=== PATIENT | male | born 1930 | race Caucasian/White ===

== ENCOUNTER 2018-12-20 08:28 | Inpatient (IN) | payer MEDICARE ==
[~2018-12-20] VITALS: Ht 162.6 cm; Wt 53.5 kg
[~2018-12-20 08:28] MED LIST: FAMO20TA8 PO; LEVO25TA7 PO
[2018-12-20] MEDS ORDERED: IV NS 0.9% 1,000 ML BAG IV ONE (09:00)
[2018-12-20 09:07] LABS: BASOPHILS # (AUTO) 0.1 /CMM (0.0-0.2); BASOPHILS % (AUTO) 0.8 % (0.0-2.0); EOSINOPHILS % (AUTO) 2.7 % (0.0-6.0); HEMATOCRIT 41 % (39-51); HEMOGLOBIN 13.8 g/dL (13.5-17.5); LYMPHOCYTES # (AUTO) 2.1 /CMM (0.8-4.8); LYMPHOCYTES % (AUTO) 32.2 % (20.0-44.0); MEAN CORPUSCULAR HGB CONC 34 g/dl (31.0-36.0); MEAN CORPUSCULAR VOLUME 89 fL (80-96); MONOCYTES # (AUTO) 0.4 /CMM (0.1-1.30); MONOCYTES % (AUTO) 6.5 % (2.0-12.0); NEUTROPHILS # (AUTO) 3.8 /CMM (1.8-8.9); NEUTROPHILS % (AUTO) 57.8 % (43.0-81.0); PLATELET COUNT (AUTO) 118 /CMM (150-450); RED BLOOD CELL COUNT(AUTO) 4.59 MIL/uL (4.5-6.0); WHITE BLOOD COUNT (AUTO) 6.5 K/uL (4.3-11.0)
[2018-12-20 09:19] LABS: CALCIUM, SERUM 8.4 mg/dL (8.5-10.1); CARBON DIOXIDE 31 mmol/L (21-32); CHLORIDE 104 mmol/L (98-107); CREATININE 1.1 mg/dL (0.6-1.3); GLUCOSE 134 mg/dL (74-106); POTASSIUM 4.8 mmol/L (3.5-5.1); SODIUM SERUM 139 mmol/L (136-145); UREA NITROGEN, BLOOD 17 mg/dL (7-18)
[2018-12-20 09:20] LABS: APPEARANCE,URINE Clear (CLEAR); BILIRUBIN,URINE Negative (NEGATIVE); BLOOD, URINE Small Ery/uL (NEGATIVE); COLOR,URINE Yellow (YELLOW); KETONES,URINE Negative (NEGATIVE); LEUKOCYTE ESTERASE ,URINE Negative (NEGATIVE); NITRITE, URINE Negative (NEGATIVE); PH,URINE 8.5 (5.0-8.0); PROTEIN,URINE Negative (NEGATIVE); UGLUCOSE Negative (NEGATIVE)
[2018-12-20 09:25] LABS: BACTERIA,URINE Rare /HPF (None Seen); RBC,URINE 0-2 /HPF (0-2); SQUAMOUS EPITHELIAL CELL,UR Rare /HPF (None Seen); WBC,URINE 0-2 /HPF (0-3)
[2018-12-20 09:25] LABS: ALANINE AMINOTRANSFERASE 44 U/L (12-78); ALBUMIN 2.7 g/dL (3.4-5.0); ALKALINE PHOSPHATASE 103 U/L (46-116); ASPARTATE AMINOTRANSFERASE 21 U/L (15-37); BILIRUBIN,DIRECT 0.3 mg/dL (0.0-0.2); TOTAL PROTEIN, SERUM 5.7 g/dL (6.4-8.2)
[2018-12-20] MEDS ORDERED: TAMS-12 PO (09:36)
[2018-12-20 13:00] VITALS: BP 126/73
[2018-12-20] MEDS ORDERED: ZOLPIDEM TARTRATE 5 MG TABLET PO PRN (14:00)
[2018-12-20] MEDS ORDERED: MAG HYDROX/AL HYDROX/SIMETH 30 ML UDC PO PRN (14:00)
[2018-12-20] MEDS ORDERED: MAGNESIUM HYDROXIDE 30 ML UDC PO PRN (14:00)
[2018-12-20] MEDS ORDERED: HYDROCODONE/APAP 5/325MG 1 EACH TABLET PO PRN (14:00)
[2018-12-20] MEDS ORDERED: ACETAMINOPHEN 325 MG TABLET PO PRN (14:00)
[2018-12-20] MEDS ORDERED: Z GUARD REMEDY 2 OZ OINT TP PRN (14:00)
[2018-12-20] MEDS ORDERED: ONDANSETRON HCL/PF 4 MG/2 ML VIAL IVP PRN (14:00)
[2018-12-20] MEDS: IV NS 0.9% 1,000 ML IV PRN (15:03)
[2018-12-20 20:00] VITALS: BP 115/70
[2018-12-20] MEDS: TAMSULOSIN 0.4 MG CAP.SR.24H PO SCH (22:00)
[2018-12-21] VITALS: BP 137/66
[2018-12-21 00:24] VITALS: BP 137/66
[2018-12-21 04:00] VITALS: BP 146/68
[2018-12-21 07:12] LABS: BASOPHILS % (AUTO) 0.7 % (0.0-2.0); EOSINOPHILS % (AUTO) 3.4 % (0.0-6.0); HEMATOCRIT 42 % (39-51); HEMOGLOBIN 13.7 g/dL (13.5-17.5); LYMPHOCYTES # (AUTO) 1.2 /CMM (0.8-4.8); LYMPHOCYTES % (AUTO) 26.7 % (20.0-44.0); MEAN CORPUSCULAR HGB CONC 33 g/dl (31.0-36.0); MEAN CORPUSCULAR VOLUME 89 fL (80-96); MONOCYTES # (AUTO) 0.3 /CMM (0.1-1.30); MONOCYTES % (AUTO) 6.9 % (2.0-12.0); NEUTROPHILS # (AUTO) 2.8 /CMM (1.8-8.9); NEUTROPHILS % (AUTO) 62.3 % (43.0-81.0); PLATELET COUNT (AUTO) 105 /CMM (150-450); RED BLOOD CELL COUNT(AUTO) 4.72 MIL/uL (4.5-6.0); WHITE BLOOD COUNT (AUTO) 4.5 K/uL (4.3-11.0)
[2018-12-21] MEDS: PANTOPRAZOLE 40 MG TABLET.DR PO SCH (07:30)
[2018-12-21] MEDS: LEVOTHYROXINE SODIUM 25 MCG TABLET PO SCH (07:30)
[2018-12-21 08:00] VITALS: BP 151/83
[2018-12-21] MEDS: IV NS 0.9% 1,000 ML IV PRN (09:33)
[2018-12-21 09:42] LABS: PREALBUMIN 19.9 MG/DL (18.0-35.7)
[2018-12-21 09:43] LABS: CARBON DIOXIDE 21 mmol/L (21-32); CHLORIDE 104 mmol/L (98-107); POTASSIUM 4.9 mmol/L (3.5-5.1); SODIUM SERUM 139 mmol/L (136-145)
[2018-12-21 09:44] LABS: CALCIUM, SERUM 8.3 mg/dL (8.5-10.1); CREATININE 0.8 mg/dL (0.6-1.3); GLUCOSE 94 mg/dL (74-106); UREA NITROGEN, BLOOD 10 mg/dL (7-18)
[2018-12-21 09:45] LABS: ALANINE AMINOTRANSFERASE 41 U/L (12-78); ALKALINE PHOSPHATASE 99 U/L (46-116); ASPARTATE AMINOTRANSFERASE 31 U/L (15-37); BILIRUBIN,TOTAL 1.2 mg/dL (0.2-1.0); PHOSPHORUS 2.7 mg/dL (2.5-4.9)
[2018-12-21 09:46] LABS: ALBUMIN 2.6 g/dL (3.4-5.0); MAGNESIUM 1.7 mg/dL (1.8-2.4); TOTAL PROTEIN, SERUM 5.6 g/dL (6.4-8.2)
[2018-12-21 10:52] LABS: CHOLESTEROL 180 mg/dL (<200); HDL CHOLESTEROL 81 mg/dL (40-60); LDL 80 mg/dL (0-99); TRIGLYCERIDES 101 mg/dL (30-150)
[2018-12-21 16:00] VITALS: BP 104/84
[2018-12-21 20:00] VITALS: BP 122/65
[2018-12-21] MEDS: TAMSULOSIN 0.4 MG CAP.SR.24H PO SCH (21:43)
[2018-12-22] VITALS: BP 140/72
[2018-12-22 00:39] VITALS: BP 140/72
[2018-12-22] MEDS ORDERED: ASPIRIN 325 MG TABLET PO SCH (01:30)
[2018-12-22 04:00] VITALS: BP 140/73
[2018-12-22] MEDS: IV NS 0.9% 1,000 ML IV PRN (04:46)
[2018-12-22 07:23] LABS: BASOPHILS % (AUTO) 0.5 % (0.0-2.0); EOSINOPHILS % (AUTO) 2.9 % (0.0-6.0); HEMATOCRIT 41 % (39-51); HEMOGLOBIN 13.2 g/dL (13.5-17.5); LYMPHOCYTES # (AUTO) 1.4 /CMM (0.8-4.8); LYMPHOCYTES % (AUTO) 29.6 % (20.0-44.0); MEAN CORPUSCULAR HGB CONC 32 g/dl (31.0-36.0); MEAN CORPUSCULAR VOLUME 88 fL (80-96); MONOCYTES # (AUTO) 0.4 /CMM (0.1-1.30); MONOCYTES % (AUTO) 8.4 % (2.0-12.0); NEUTROPHILS # (AUTO) 2.7 /CMM (1.8-8.9); NEUTROPHILS % (AUTO) 58.6 % (43.0-81.0); PLATELET COUNT (AUTO) 113 /CMM (150-450); WHITE BLOOD COUNT (AUTO) 4.6 K/uL (4.3-11.0)
[2018-12-22] MEDS: LEVOTHYROXINE SODIUM 25 MCG TABLET PO SCH (07:30)
[2018-12-22] MEDS: PANTOPRAZOLE 40 MG TABLET.DR PO SCH (07:30)
[2018-12-22 07:40] LABS: CALCIUM, SERUM 7.9 mg/dL (8.5-10.1); CARBON DIOXIDE 24 mmol/L (21-32); CHLORIDE 105 mmol/L (98-107); CREATININE 0.9 mg/dL (0.6-1.3); GLUCOSE 63 mg/dL (74-106); MAGNESIUM 1.7 mg/dL (1.8-2.4); PHOSPHORUS 2.3 mg/dL (2.5-4.9); POTASSIUM 4.4 mmol/L (3.5-5.1); SODIUM SERUM 139 mmol/L (136-145); UREA NITROGEN, BLOOD 10 mg/dL (7-18)
[2018-12-22 08:00] VITALS: BP 128/68
[2018-12-22] MEDS: Magnesium 1GM/D5W 100ML PREMIX 100 ML IV SCH ×2 (11:43→12:40)
[2018-12-22] MEDS ORDERED: Sodium Phosphate 15 MMOL in IV D5W 250 ML IV ONE (12:00)
[2018-12-22 16:00] VITALS: BP 137/73
[2018-12-22 20:00] VITALS: BP 115/69
[2018-12-22] MEDS: TAMSULOSIN 0.4 MG CAP.SR.24H PO SCH (22:00)
[2018-12-23] MEDS: IV NS 0.9% 1,000 ML IV PRN (06:03)
[2018-12-23] MEDS: PANTOPRAZOLE 40 MG TABLET.DR PO SCH (07:30)
[2018-12-23] MEDS: LEVOTHYROXINE SODIUM 25 MCG TABLET PO SCH (07:30)
[2018-12-23 08:00] VITALS: BP 127/66
[2018-12-23 10:27] LABS: BASOPHILS % (AUTO) 0.8 % (0.0-2.0); HEMATOCRIT 42 % (39-51); HEMOGLOBIN 13.6 g/dL (13.5-17.5); LYMPHOCYTES # (AUTO) 1.3 /CMM (0.8-4.8); LYMPHOCYTES % (AUTO) 28.5 % (20.0-44.0); MEAN CORPUSCULAR HGB CONC 33 g/dl (31.0-36.0); MEAN CORPUSCULAR VOLUME 88 fL (80-96); MONOCYTES # (AUTO) 0.4 /CMM (0.1-1.30); MONOCYTES % (AUTO) 8.5 % (2.0-12.0); NEUTROPHILS # (AUTO) 2.7 /CMM (1.8-8.9); NEUTROPHILS % (AUTO) 60.2 % (43.0-81.0); PLATELET COUNT (AUTO) 118 /CMM (150-450); RED BLOOD CELL COUNT(AUTO) 4.72 MIL/uL (4.5-6.0); WHITE BLOOD COUNT (AUTO) 4.5 K/uL (4.3-11.0)
[2018-12-23 10:36] LABS: CALCIUM, SERUM 7.9 mg/dL (8.5-10.1); CARBON DIOXIDE 28 mmol/L (21-32); CHLORIDE 102 mmol/L (98-107); CREATININE 0.8 mg/dL (0.6-1.3); GLUCOSE 99 mg/dL (74-106); PHOSPHORUS 2.1 mg/dL (2.5-4.9); POTASSIUM 4.4 mmol/L (3.5-5.1); SODIUM SERUM 136 mmol/L (136-145); UREA NITROGEN, BLOOD 6 mg/dL (7-18)
[2018-12-23 16:00] VITALS: BP 133/94
[2018-12-23 20:00] VITALS: BP 117/55
[2018-12-23] MEDS: TAMSULOSIN 0.4 MG CAP.SR.24H PO SCH (21:23)
[2018-12-24] MEDS: LEVOTHYROXINE SODIUM 25 MCG TABLET PO SCH (07:30)
[2018-12-24] MEDS: PANTOPRAZOLE 40 MG TABLET.DR PO SCH (07:30)
[2018-12-24] MEDS: IV NS 0.9% 1,000 ML IV PRN (07:38)
[2018-12-24 08:00] VITALS: BP_SYST 142; BP_SYST 143; BP_DIAS 61
[2018-12-24 16:00] VITALS: BP 124/70
[2018-12-24 20:55] VITALS: BP 141/59
[2018-12-24] MEDS: TAMSULOSIN 0.4 MG CAP.SR.24H PO SCH (21:46)
[2018-12-25] MEDS: LEVOTHYROXINE SODIUM 25 MCG TABLET PO SCH (07:30)
[2018-12-25] MEDS: PANTOPRAZOLE 40 MG TABLET.DR PO SCH (07:30)
[2018-12-25 07:37] LABS: CALCIUM, SERUM 7.9 mg/dL (8.5-10.1); CARBON DIOXIDE 22 mmol/L (21-32); CHLORIDE 104 mmol/L (98-107); CREATININE 0.8 mg/dL (0.6-1.3); GLUCOSE 58 mg/dL (74-106); SODIUM SERUM 140 mmol/L (136-145); UREA NITROGEN, BLOOD 6 mg/dL (7-18)
[2018-12-25 07:51] LABS: BASOPHILS % (AUTO) 0.4 % (0.0-2.0); EOSINOPHILS % (AUTO) 2.7 % (0.0-6.0); HEMATOCRIT 42 % (39-51); HEMOGLOBIN 13.8 g/dL (13.5-17.5); LYMPHOCYTES # (AUTO) 1.7 /CMM (0.8-4.8); LYMPHOCYTES % (AUTO) 30.9 % (20.0-44.0); MEAN CORPUSCULAR HGB CONC 33 g/dl (31.0-36.0); MEAN CORPUSCULAR VOLUME 88 fL (80-96); MONOCYTES # (AUTO) 0.6 /CMM (0.1-1.30); MONOCYTES % (AUTO) 10.4 % (2.0-12.0); NEUTROPHILS % (AUTO) 55.6 % (43.0-81.0); PLATELET COUNT (AUTO) 113 /CMM (150-450); RED BLOOD CELL COUNT(AUTO) 4.76 MIL/uL (4.5-6.0); WHITE BLOOD COUNT (AUTO) 5.5 K/uL (4.3-11.0)
[2018-12-25 08:00] VITALS: BP 119/53
[2018-12-25] MEDS ORDERED: ANESTHESIA TRAY IN PYXIS 1 EA TRAY MC ONE (09:10)
[2018-12-25] MEDS ORDERED: TPN/PPN PER PHARMACY IV PRN (11:30)
[2018-12-25 13:26] LABS: MAGNESIUM 1.7 mg/dL (1.8-2.4); PHOSPHORUS 2.1 mg/dL (2.5-4.9)
[2018-12-25] MEDS ORDERED: Magnesium 1GM/D5W 100ML PREMIX 100 ML IV SCH (14:12)
[2018-12-25] MEDS ORDERED: DEXTROSE 50%-WATER 50 ML DISP.SYRIN IV PRN (14:30)
[2018-12-25] MEDS ORDERED: POTASSIUM PHOSPHATE MM 15 MMOL in IV D5W 250 ML IV SCH (15:00)
[2018-12-25 16:00] VITALS: BP 128/58
[2018-12-25] MEDS: Magnesium 1GM/D5W 100ML PREMIX 100 ML IV SCH ×2 (16:05→17:04)
[2018-12-25] MEDS ORDERED: FEE TPN 1 MIN EA MC ONE (16:37)
[2018-12-25] MEDS: Potassium Phosphate meq 11 MEQ in IV D5W 100 ML IV SCH ×2 (16:54→20:17)
[2018-12-25] MEDS: BLOOD SUGAR DIAGNOSTIC 1 EACH STRIP IN SCH (18:00)
[2018-12-25 20:43] VITALS: BP 147/53
[2018-12-25] MEDS: TAMSULOSIN 0.4 MG CAP.SR.24H PO SCH (21:25)
[2018-12-26] MEDS ORDERED: TPN BAG #1 IV PRN ×5
[2018-12-26] MEDS ORDERED: IV NS 0.9% 1,000 ML IV PRN (03:00)
[2018-12-26] MEDS: BLOOD SUGAR DIAGNOSTIC 1 EACH STRIP IN SCH ×5 (06:06→23:38)
[2018-12-26] MEDS: INSULIN REGULAR, HUMAN 100 UNIT/ML 3 ML VIAL SQ PRN ×3 (06:07→23:36)
[2018-12-26] MEDS: PANTOPRAZOLE 40 MG TABLET.DR PO SCH (07:30)
[2018-12-26] MEDS: LEVOTHYROXINE SODIUM 25 MCG TABLET PO SCH (07:30)
[2018-12-26 07:48] LABS: TRIGLYCERIDES 102 mg/dL (30-150)
[2018-12-26 07:58] LABS: CALCIUM, SERUM 7.9 mg/dL (8.5-10.1); CARBON DIOXIDE 23 mmol/L (21-32); CHLORIDE 102 mmol/L (98-107); CREATININE 0.8 mg/dL (0.6-1.3); GLUCOSE 150 mg/dL (74-106); MAGNESIUM 2.1 mg/dL (1.8-2.4); PHOSPHORUS 1.7 mg/dL (2.5-4.9); POTASSIUM 4.1 mmol/L (3.5-5.1); SODIUM SERUM 135 mmol/L (136-145); UREA NITROGEN, BLOOD 8 mg/dL (7-18)
[2018-12-26 08:00] VITALS: BP 124/62
[2018-12-26] MEDS ORDERED: Sodium Phosphate 15 MMOL in IV D5W 250 ML IV ONE (10:00)
[2018-12-26] MEDS ORDERED: TPN BAG 2 IV PRN ×7 (14:00)
[2018-12-26 16:00] VITALS: BP 152/62
[2018-12-26 20:00] VITALS: BP 147/77
[2018-12-26] MEDS: TAMSULOSIN 0.4 MG CAP.SR.24H PO SCH (21:03)
[2018-12-27] VITALS (7 sets, daily range): BP systolic 91–155; BP diastolic 52–76
[2018-12-27] MEDS: BLOOD SUGAR DIAGNOSTIC 1 EACH STRIP IN SCH ×4 (05:25→23:59)
[2018-12-27] MEDS: INSULIN REGULAR, HUMAN 100 UNIT/ML 3 ML VIAL SQ PRN ×2 (05:26→12:00)
[2018-12-27 07:05] LABS: CALCIUM, SERUM 7.6 mg/dL (8.5-10.1); CARBON DIOXIDE 26 mmol/L (21-32); CHLORIDE 105 mmol/L (98-107); CREATININE 0.9 mg/dL (0.6-1.3); GLUCOSE 149 mg/dL (74-106); MAGNESIUM 1.9 mg/dL (1.8-2.4); PHOSPHORUS 1.8 mg/dL (2.5-4.9); SODIUM SERUM 138 mmol/L (136-145); UREA NITROGEN, BLOOD 12 mg/dL (7-18)
[2018-12-27] MEDS: PANTOPRAZOLE 40 MG TABLET.DR PO SCH (07:30)
[2018-12-27] MEDS: LEVOTHYROXINE SODIUM 25 MCG TABLET PO SCH (07:30)
[2018-12-27] MEDS ORDERED: Sodium Phosphate 15 MMOL in IV D5W 250 ML IV ONE (08:00)
[2018-12-27] MEDS ORDERED: TPN BAG #3 IV PRN ×7 (08:00)
[2018-12-27] MEDS ORDERED: MIDAZOLAM HCL 2 MG/2ML VIAL ONE (16:21)
[2018-12-27] MEDS ORDERED: FENTANYL PF 100MCG/2ML AMPUL ONE ×2 (16:21→19:15)
[2018-12-27] MEDS ORDERED: FAMOTIDINE/PF INJ 20 MG/2 ML VIAL IV ONE (16:22)
[2018-12-27] MEDS ORDERED: SUCCINYLCHOLINE CHLORIDE 20 MG/ML VIAL ONE (16:23)
[2018-12-27] MEDS ORDERED: ANESTHESIA TRAY IN PYXIS 1 EA TRAY MC ONE (16:32)
[2018-12-27] MEDS ORDERED: LIDOCAINE 1% INJ 50 ML MDV IJ ONE (17:25)
[2018-12-27] MEDS ORDERED: BUPIVACAINE MPF 0.5% W/EPI INJ 30 ML VIAL ONE (17:25)
[2018-12-27] MEDS ORDERED: LIDOCAINE HCL/PF 1% 30 ML SDV ONE (17:27)
[2018-12-27] MEDS ORDERED: BACITRACIN OPHTH OINT 3.5 GM TUBE ONE (18:08)
[2018-12-27] MEDS ORDERED: ALBUTEROL FS 2.5 MG/3 ML VIAL.NEB ONE (18:50)
[2018-12-27] MEDS ORDERED: IV NS 0.9% 1,000 ML IV SCH (21:00)
[2018-12-27] MEDS ORDERED: PROPOFOL 100 ML IV PRN (21:00)
[2018-12-27 21:38] LABS: ABG PCO2 28.9 mmHg (35.0-45.0); ABG PH 7.297 (7.350-7.450); AaDO2 605.1 mmHg; COHb 0.6 % (0.5-1.5); MetHb 0.5 % (0.0-1.5); SITE, ABG Right Radial
[2018-12-27] MEDS: TAMSULOSIN 0.4 MG CAP.SR.24H PO SCH (22:00)
[2018-12-27] MEDS ORDERED: DIATR MEGLU/DIATRIZOATE SODIUM 30 ML BOTTLE (GASTROGRAPHIN) ONE (22:33)
[2018-12-28] VITALS (96 sets, daily range): BP systolic 72–137; BP diastolic 24–105
[2018-12-28] MEDS ORDERED: NOREPINEPHRINE 8 MG in IV D5W 500 ML IV PRN (01:00)
[2018-12-28 01:10] LABS: ABG BASE EXCESS -8.7 mmol/L; ABG OXYGEN SATURATION 98.4 % (92.0-98.5); ABG PCO2 29.1 mmHg (35.0-45.0); ABG PH 7.343 (7.350-7.450); ABG PO2 138.1 mmHg (75.0-100.0); AaDO2 545.8 mmHg; COHb 0.7 % (0.5-1.5); MetHb 0.7 % (0.0-1.5); PEEP,BG 5 cm H2O; SITE, ABG Left Brachial; VT, ABG 500 mL
[2018-12-28] MEDS ORDERED: NOREPINEPHRINE 4 MG/4 ML AMPUL IV ONE (04:24)
[2018-12-28 04:29] LABS: CALCIUM, SERUM 7.4 mg/dL (8.5-10.1); CARBON DIOXIDE 18 mmol/L (21-32); CHLORIDE 106 mmol/L (98-107); CREATININE 1.5 mg/dL (0.6-1.3); GLUCOSE 272 mg/dL (74-106); MAGNESIUM 1.5 mg/dL (1.8-2.4); PHOSPHORUS 3.1 mg/dL (2.5-4.9); POTASSIUM 3.7 mmol/L (3.5-5.1); SODIUM SERUM 139 mmol/L (136-145); UREA NITROGEN, BLOOD 22 mg/dL (7-18)
[2018-12-28] MEDS: NOREPINEPHRINE 8 MG in IV D5W 500 ML IV PRN ×2 (04:30→08:12)
[2018-12-28] MEDS: BLOOD SUGAR DIAGNOSTIC 1 EACH STRIP IN SCH ×4 (06:14→23:34)
[2018-12-28] MEDS: INSULIN REGULAR, HUMAN 100 UNIT/ML 3 ML VIAL SQ PRN ×4 (06:15→17:49)
[2018-12-28] MEDS: LEVOTHYROXINE SODIUM 25 MCG TABLET PO SCH (07:30)
[2018-12-28] MEDS: PANTOPRAZOLE 40 MG TABLET.DR PO SCH (07:30)
[2018-12-28 07:35] LABS: BASOPHILS % (AUTO) 0.3 % (0.0-2.0); EOSINOPHILS % (AUTO) 0.1 % (0.0-6.0); HEMATOCRIT 43 % (39-51); HEMOGLOBIN 14.1 g/dL (13.5-17.5); LYMPHOCYTES # (AUTO) 0.5 /CMM (0.8-4.8); LYMPHOCYTES % (AUTO) 16.9 % (20.0-44.0); MEAN CORPUSCULAR HGB CONC 33 g/dl (31.0-36.0); MEAN CORPUSCULAR VOLUME 89 fL (80-96); MONOCYTES # (AUTO) 0.2 /CMM (0.1-1.30); MONOCYTES % (AUTO) 7.5 % (2.0-12.0); NEUTROPHILS # (AUTO) 2.4 /CMM (1.8-8.9); NEUTROPHILS % (AUTO) 75.2 % (43.0-81.0); PLATELET COUNT (AUTO) 106 /CMM (150-450); WHITE BLOOD COUNT (AUTO) 3.2 K/uL (4.3-11.0)
[2018-12-28] MEDS: Magnesium 1GM/D5W 100ML PREMIX 100 ML IV SCH ×2 (07:57→09:26)
[2018-12-28 08:43] LABS: NEUTROPHILS % (MANUAL) 44 (42-76)
[2018-12-28 08:44] LABS: BAND % (MANUAL) 23 % (0.0-5.0); LYMPHOCYTES % (MANUAL) 23 % (16-48); METAMYELOCYTES % 3 % (0-0); MONOCYTES % (MANUAL) 6 % (0-11.0); MYELOCYTES % 1 % (0-0)
[2018-12-28] MEDS: HYDROCORTISONE SOD SUCCINATE 100 MG/2 ML VIAL IV SCH ×3 (10:49→17:36)
[2018-12-28] MEDS: FLUDROCORTISONE 0.1 MG TABLET JT SCH ×2 (12:16→17:36)
[2018-12-28] MEDS ORDERED: FUROSEMIDE 20 MG/2 ML VIAL IV ONE (12:30)
[2018-12-28] MEDS ORDERED: DC PROPOFOL WHEN EXTUBATED XX PRN (14:30)
[2018-12-28] MEDS ORDERED: GLUCERNA 1.2 1,000 ML BOTTLE NG PRN (15:00)
[2018-12-28 16:54] LABS: ABG BASE EXCESS -7.4 mmol/L; ABG PCO2 25.8 mmHg (35.0-45.0); ABG PO2 94.2 mmHg (75.0-100.0); AaDO2 233.3 mmHg; COHb 0.5 % (0.5-1.5); MetHb 0.6 % (0.0-1.5); O2Hb 95.9 % (94.0-97.0); PEEP,BG 5 cm H2O; SITE, ABG Right Radial
[2018-12-28 17:41] LABS: CREATININE, URINE 159.9 MG/DL (30.0-125.0)
[2018-12-28 18:16] LABS: APPEARANCE,URINE CLOUDY (CLEAR); BILIRUBIN,URINE 1+ (NEGATIVE); BLOOD, URINE 1+ Ery/uL (NEGATIVE); COLOR,URINE AMBER (YELLOW); KETONES,URINE TRACE (NEGATIVE); LEUKOCYTE ESTERASE ,URINE 2+ (NEGATIVE); NITRITE, URINE NEGATIVE (NEGATIVE); PROTEIN,URINE 1+ mg/dl (NEGATIVE); UGLUCOSE NEGATIVE (NEGATIVE)
[2018-12-28 18:46] LABS: WBC,URINE 21-50 /HPF (0-3)
[2018-12-28 18:47] LABS: BACTERIA,URINE Rare /HPF (None Seen); YEAST,URINE Many /HPF (None Seen)
[2018-12-28 19:18] LABS: EOSINOPHIL,URINE None Seen
[2018-12-28] MEDS: TAMSULOSIN 0.4 MG CAP.SR.24H PO SCH (22:21)
[2018-12-29] VITALS (74 sets, daily range): BP systolic 49–159; BP diastolic 17–111
[2018-12-29 04:50] LABS: BASOPHILS % (AUTO) 0.4 % (0.0-2.0); HEMATOCRIT 38 % (39-51); HEMOGLOBIN 12.5 g/dL (13.5-17.5); LYMPHOCYTES # (AUTO) 1.3 /CMM (0.8-4.8); LYMPHOCYTES % (AUTO) 15.3 % (20.0-44.0); MEAN CORPUSCULAR HGB CONC 33 g/dl (31.0-36.0); MEAN CORPUSCULAR VOLUME 87 fL (80-96); MONOCYTES # (AUTO) 0.4 /CMM (0.1-1.30); MONOCYTES % (AUTO) 4.9 % (2.0-12.0); NEUTROPHILS # (AUTO) 6.8 /CMM (1.8-8.9); NEUTROPHILS % (AUTO) 79.4 % (43.0-81.0); PLATELET COUNT (AUTO) 115 /CMM (150-450); RED BLOOD CELL COUNT(AUTO) 4.37 MIL/uL (4.5-6.0); WHITE BLOOD COUNT (AUTO) 8.6 K/uL (4.3-11.0)
[2018-12-29 05:05] LABS: ALANINE AMINOTRANSFERASE 13 U/L (12-78); ALBUMIN 1.9 g/dL (3.4-5.0); ALKALINE PHOSPHATASE 93 U/L (46-116); ASPARTATE AMINOTRANSFERASE 20 U/L (15-37); CALCIUM, SERUM 8.3 mg/dL (8.5-10.1); CARBON DIOXIDE 24 mmol/L (21-32); CHLORIDE 106 mmol/L (98-107); CREATININE 1.6 mg/dL (0.6-1.3); GLUCOSE 136 mg/dL (74-106); MAGNESIUM 2.1 mg/dL (1.8-2.4); PHOSPHORUS 2.9 mg/dL (2.5-4.9); POTASSIUM 4.5 mmol/L (3.5-5.1); SODIUM SERUM 140 mmol/L (136-145); TOTAL PROTEIN, SERUM 4.9 g/dL (6.4-8.2); UREA NITROGEN, BLOOD 36 mg/dL (7-18)
[2018-12-29 05:12] LABS: CREATINE KINASE, TOTAL 105 U/L (39-308)
[2018-12-29] MEDS: BLOOD SUGAR DIAGNOSTIC 1 EACH STRIP IN SCH ×3 (05:56→17:38)
[2018-12-29] MEDS: INSULIN REGULAR, HUMAN 100 UNIT/ML 3 ML VIAL SQ PRN ×2 (06:00→17:40)
[2018-12-29 06:25] LABS: BAND % (MANUAL) 7 % (0.0-5.0); LYMPHOCYTES % (MANUAL) 12 % (16-48); MONOCYTES % (MANUAL) 6 % (0-11.0); NEUTROPHILS % (MANUAL) 75 (42-76)
[2018-12-29] MEDS ORDERED: FEE PK DOSING 1 MIN EA MC ONE (11:05)
[2018-12-29] MEDS: ALBUTEROL FS 2.5 MG/3 ML VIAL.NEB NEB SCH ×3 (11:14→19:43)
[2018-12-29 11:34] LABS: ABG BASE EXCESS -5.6 mmol/L; ABG OXYGEN SATURATION 82.2 % (92.0-98.5); ABG PCO2 37.2 mmHg (35.0-45.0); ABG PH 7.338 (7.350-7.450); ABG PO2 49.2 mmHg (75.0-100.0); AaDO2 337.7 mmHg; COHb 0.8 % (0.5-1.5); MetHb 0.6 % (0.0-1.5); SITE, ABG Left Radial
[2018-12-29] MEDS ORDERED: PIPERACILLIN /TAZOBACTAM 4.5 G in IV D5W 50 ML IV SCH (12:00)
[2018-12-29] MEDS ORDERED: PROPOFOL 100 ML IV PRN (12:00)
[2018-12-29] MEDS ORDERED: VANCOMYCIN 1 GM in IV D5W 250 ML IV ONE (13:00)
[2018-12-29 13:49] LABS: ABG BASE EXCESS -9.5 mmol/L; ABG PCO2 50.8 mmHg (35.0-45.0); ABG PH 7.189 (7.350-7.450); ABG PO2 72.8 mmHg (75.0-100.0); AaDO2 589.4 mmHg; COHb 0.6 % (0.5-1.5); MetHb 0.5 % (0.0-1.5); PEEP,BG 5 cm H2O; SITE, ABG Left Brachial; VT, ABG 450 mL
[2018-12-29] MEDS ORDERED: IV NS 0.9% 250 ML IV ONE (14:15)
[2018-12-29] MEDS ORDERED: PHENYLEPHRINE 80 MG in IV D5W 250 ML IV PRN (15:00)
[2018-12-29] MEDS ORDERED: IV NS 0.9% 100 ML IV PRN (15:00)
[2018-12-29] MEDS ORDERED: IV NS 0.9% 1,000 ML BAG IV PRN (15:00)
[2018-12-29] MEDS ORDERED: methylPREDNISolone SOD SUCC 125 MG/2ML VIAL IV ONE (15:00)
[2018-12-29] MEDS: NOREPINEPHRINE 8 MG in IV D5W 500 ML IV PRN (15:09)
[2018-12-29] MEDS ORDERED: IV NS 0.9% 1,000 ML IV PRN (15:30)
[2018-12-29 15:44] LABS: ABG BASE EXCESS -11.5 mmol/L; ABG OXYGEN SATURATION 93.2 % (92.0-98.5); ABG PCO2 44.1 mmHg (35.0-45.0); ABG PH 7.189 (7.350-7.450); ABG PO2 81.9 mmHg (75.0-100.0); COHb 0.5 % (0.5-1.5); MetHb 0.7 % (0.0-1.5); O2Hb 92.1 % (94.0-97.0); PEEP,BG 5 cm H2O; SITE, ABG Left Brachial; VT, ABG 450 mL
[2018-12-29] MEDS ORDERED: SODIUM BICARBONATE SYR 50 MEQ/50 ML DISP.SYRIN IV STA (16:08)
[2018-12-29] MEDS ORDERED: NOREPINEPHRINE 16 MG in IV D5W 500 ML IV PRN (16:30)
[2018-12-29] MEDS ORDERED: SODIUM BICARBONATE SYR 100 MEQ in IV D5W 1,000 ML IV ONE (17:00)
[2018-12-29] MEDS: ACETYLCYSTEINE 10% SOLN 400 MG/4 ML VIAL NEB SCH ×2 (17:31→19:43)
[2018-12-29] MEDS ORDERED: MEROPENEM 500 MG in IV NS 0.9% 50 ML IV SCH (18:00)
[2018-12-29 18:04] LABS: ABG BASE EXCESS -8.6 mmol/L; ABG OXYGEN SATURATION 94.1 % (92.0-98.5); ABG PCO2 33.4 mmHg (35.0-45.0); ABG PH 7.313 (7.350-7.450); ABG PO2 74.1 mmHg (75.0-100.0); AaDO2 605.5 mmHg; COHb 0.9 % (0.5-1.5); MetHb 0.3 % (0.0-1.5); PEEP,BG 10 cm H2O; SITE, ABG Left Brachial; VT, ABG 500 mL
[2018-12-29] MEDS ORDERED: EPINEPHRINE (1:10,000) SYRINGE 1 MG/10 ML DISP.SYRIN IVP ONE (21:59)
[2018-12-30] MEDS ORDERED: VANCOMYCIN 0.75 GM in IV D5W 250 ML IV SCH (13:00)
== END 2018-12-29 22:00 | disposition expired | DRG 981 ==
LOC: ER 08:31 → TELE 12:12 → MED 12-22 08:47 → ICU 12-27 20:24
PROVIDERS: ADMIT Nurse Practitioner Acute Care; ATTEND Internal Medicine
PROC: 0DB68ZX Excision of Stomach, Via Natural or Artificial Opening Endoscopic, Diagnostic (ICD-10-PCS; principal; 2018-12-25)
PROC: 02HV33Z Insertion of Infusion Device into Superior Vena Cava, Percutaneous Approach (ICD-10-PCS; 2018-12-25)
PROC: B548ZZA Ultrasonography of Superior Vena Cava, Guidance (ICD-10-PCS; 2018-12-25)
PROC: 0DN80ZZ Release Small Intestine, Open Approach (ICD-10-PCS; 2018-12-27)
PROC: 5A1945Z Respiratory Ventilation, 24-96 Consecutive Hours (ICD-10-PCS; 2018-12-27)
PROC: 0BH17EZ Insertion of Endotracheal Airway into Trachea, Via Natural or Artificial Opening (ICD-10-PCS; 2018-12-27)
PROC: 0DHA3UZ Insertion of Feeding Device into Jejunum, Percutaneous Approach (ICD-10-PCS; 2018-12-27)
PROC: 5A1935Z Respiratory Ventilation, Less than 24 Consecutive Hours (ICD-10-PCS; 2018-12-29)
PROC: 0BH17EZ Insertion of Endotracheal Airway into Trachea, Via Natural or Artificial Opening (ICD-10-PCS; 2018-12-29)
DX: G90.8 Other disorders of autonomic nervous system (principal); G93.41 Metabolic encephalopathy; A41.9 Sepsis, unspecified organism; R65.21 Severe sepsis with septic shock; J69.0 Pneumonitis due to inhalation of food and vomit; N17.0 Acute kidney failure with tubular necrosis; I69.354 Hemiplegia and hemiparesis following cerebral infarction affecting left non-dominant side; D68.59 Other primary thrombophilia; E44.0 Moderate protein-calorie malnutrition; J98.11 Atelectasis; K56.609 Unspecified intestinal obstruction, unspecified as to partial versus complete obstruction; N39.0 Urinary tract infection, site not specified; E87.1 Hypo-osmolality and hyponatremia; Z86.718 Personal history of other venous thrombosis and embolism; F03.90 Unspecified dementia, unspecified severity, without behavioral disturbance, psychotic disturbance, mood disturbance, and anxiety; E11.9 Type 2 diabetes mellitus without complications; E03.9 Hypothyroidism, unspecified; M47.812 Spondylosis without myelopathy or radiculopathy, cervical region; M79.2 Neuralgia and neuritis, unspecified; D69.6 Thrombocytopenia, unspecified; Z68.20 Body mass index [BMI] 20.0-20.9, adult; E88.09 Other disorders of plasma-protein metabolism, not elsewhere classified; R13.10 Dysphagia, unspecified; E83.42 Hypomagnesemia; E83.39 Other disorders of phosphorus metabolism; R94.31 Abnormal electrocardiogram [ECG] [EKG]; K20.9 Esophagitis, unspecified; K29.70 Gastritis, unspecified, without bleeding; Z95.828 Presence of other vascular implants and grafts; K66.0 Peritoneal adhesions (postprocedural) (postinfection); D64.9 Anemia, unspecified; R62.7 Adult failure to thrive; R06.89 Other abnormalities of breathing
CPT/HCPCS: 31720; 36415; 36569; 36600; 43246; 70450-TC; 71045-TC; 74018; 76770-TC; 80048-TC; 80053-TC; 80061-TC; 80076-TC; 81000-TC; 82533; 82550-TC; 82570-TC; 82803-TC; 82962-TC; 83605-TC; 83735-TC; 84100-TC; 84134-TC; 84155-TC; 84300-TC; 84439-TC; 84443-TC; 84478-TC; 84484-TC; 85025-TC; 85730-TC; 87040-TC; 87081-TC; 87086-TC; 88305-TC; 88313-TC; 88342; 92521; 92526; 93307-TC; 94002-TC; 94799-TC; 97110-TC; 97116-TC; 97530-TC; A4216; A4349; A9563; C1751; G0378; J0171; J0330; J0690; J1720; J1815; J1940; J2185; J2250; J2370; J2405; J2543; J2704; J2930; J3010; J3370; J3475; J3490; J7030; J7040; J7050; J7060; J7070; Q9963